=== PATIENT | male | born 1980 | race Caucasian/White ===

== ENCOUNTER 2017-05-28 13:45 | Emergency (ER) | payer OTHER ==
[~2017-05-28] VITALS: Ht 182.9 cm; Wt 104.3 kg
[2017-05-28] MEDS ORDERED: ESOM40CA PO (13:52)
--- NOTE | 2017-05-28 14:04 | NUR ---
DR GRIMALDO AT THE [facility] FOR EVAL AND EXAM.
--- NOTE | 2017-05-28 15:02 | NUR ---
Patient discharged to home in stable conditon. Written and verbal after care instructions given. Patient verbalizes understanding of instructions. No N/V.
[2017-05-28 15:21] VITALS: BP 141/78
== END 2017-05-28 15:22 | disposition home or self-care (01) ==
LOC: ER 13:45
DX: R51 Headache (principal); R11.0 Nausea; K21.9 Gastro-esophageal reflux disease without esophagitis
CPT/HCPCS: 82962; 99282; A4663

== ENCOUNTER 2017-07-03 15:36 | Emergency (ER) | payer OTHER ==
[~2017-07-03] VITALS: Ht 182.9 cm; Wt 104.3 kg
[~2017-07-03 15:36] MED LIST: ESOM40CA PO
[2017-07-03] MEDS ORDERED: AZITHROMYCIN 250 MG TABLET PO ONE (16:00)
--- NOTE | 2017-07-03 16:10 | NUR ---
Patient discharged to home in stable conditon. Written and verbal after care instructions given. Patient verbalizes understanding of instructions.
[2017-07-03] MEDS ORDERED: AZITHROMYCIN 250 MG TABLET ONE (16:24)
== END 2017-07-03 16:10 | disposition home or self-care (01) ==
LOC: ER 15:37
DX: J02.9 Acute pharyngitis, unspecified (principal); K21.9 Gastro-esophageal reflux disease without esophagitis; Z88.0 Allergy status to penicillin
CPT/HCPCS: A4663; Q0144

== ENCOUNTER 2017-11-26 21:29 | Emergency (ER) | payer OTHER ==
[~2017-11-26] VITALS: Ht 185.4 cm; Wt 104.3 kg
[2017-11-26 22:08] LABS: *BILIRUBIN,URIN NEGATIVE (NEGATIVE); *BLOOD, URINE NEGATIVE (NEGATIVE); *CLARITY,URINE CLEAR (CLEAR); *COLOR,URINE YELLOW (YELLOW); *KETONES,URINE NEGATIVE (NEGATIVE); *PROTEIN,URINE NEGATIVE (NEGATIVE); LEUKOCYTE ESTERASE ,URINE NEGATIVE (NEGATIVE); NITRITE, URINE NEGATIVE (NEGATIVE); PH,URINE 7.5 (5.0-8.0); UGLUCOSE NEGATIVE (NEGATIVE)
[2017-11-26 22:13] LABS: MUCUS,URINE FEW /LPF (0-FEW); WBC,URINE 0-3 /HPF (0-3)
--- NOTE | 2017-11-26 22:41 | NUR ---
Patient discharged to home in stable conditon. Written and verbal after care instructions given. Patient verbalizes understanding of instructions. WALKED OUT OF ER WITH NO DISTRESS NOTED
== END 2017-11-26 22:42 | disposition home or self-care (01) ==
LOC: ER 21:34
DX: R30.0 Dysuria (principal); K21.9 Gastro-esophageal reflux disease without esophagitis; Z88.0 Allergy status to penicillin; Z88.6 Allergy status to analgesic agent; Z79.899 Other long term (current) drug therapy
CPT/HCPCS: 81001; 87077; 87086; 87186; 99284; A4663

== ENCOUNTER 2019-05-10 15:05 | Emergency (ER) | payer OTHER ==
[~2019-05-10] VITALS: Ht 182.9 cm; Wt 104.3 kg
--- NOTE | 2019-05-10 16:07 | NUR ---
PATEINT WAS SEEN BY . DC, RX AND FOLLOW UP INSTRUCTIONS GIVEN AND EXPLAINED TO PATIENT WHO STATES HE UNDERSTANDS ALL INSTRUCTIONS.
== END 2019-05-10 16:10 | disposition home or self-care (01) ==
LOC: ER 15:05
DX: H66.91 Otitis media, unspecified, right ear (principal); K21.9 Gastro-esophageal reflux disease without esophagitis; Z88.0 Allergy status to penicillin; Z88.8 Allergy status to other drugs, medicaments and biological substances; Z79.899 Other long term (current) drug therapy
CPT/HCPCS: A4663

== ENCOUNTER 2019-10-08 19:39 | Emergency (ER) | payer OTHER ==
[~2019-10-08] VITALS: Ht 182.9 cm; Wt 104.3 kg
--- NOTE | 2019-10-08 20:06 | NUR ---
Patient presents to ER with c/o of Lt eye x 2 days. Patient alert and oriented x 4, ambulatory with stready gait. Noted mild redness and swelling to Lt upper eyelid. Patient in no acute distress, no discharge to eyes. Patient placed in Bed 2A by triage nurse. Side reails up for safety. Awaiting MD stout.
[2019-10-08] MEDS ORDERED: FLUORESCEIN SODIUM 1 MG STRIP OP ONE (20:15)
[2019-10-08] MEDS ORDERED: FLUORESCEIN SODIUM 1 MG STRIP ONE (20:21)
[2019-10-08] MEDS ORDERED: TETRACAINE HCL 0.5% OPHT DROP 2 ML BOTTLE ONE (20:21)
--- NOTE | 2019-10-08 20:25 | NUR ---
Dr. Ho at bedside.
[2019-10-08] MEDS ORDERED: TETRACAINE HCL 0.5% OPHT DROP 2 ML BOTTLE OP ONE (20:30)
--- NOTE | 2019-10-08 20:41 | NUR ---
Per Dr. Ho patient stable for discharge. DC instructions and prescriptions given and reviewed with patient, verbalized understanding. Left ER in stable condition.
== END 2019-10-08 20:41 | disposition home or self-care (01) ==
LOC: ER 19:39
DX: H00.014 Hordeolum externum left upper eyelid (principal)
CPT/HCPCS: A4663

== ENCOUNTER 2019-10-18 22:29 | Emergency (ER) | payer OTHER ==
[~2019-10-18] VITALS: Ht 182.9 cm; Wt 104.3 kg
--- NOTE | 2019-10-18 22:44 | NUR ---
VISUAL ACUITY EXAM: R- 20/40 L- 20/30 B- 20/30
--- NOTE | 2019-10-18 22:46 | NUR ---
ERMD at bedside for MSE
[2019-10-18] MEDS ORDERED: TETRACAINE HCL 0.5% OPHT DROP 2 ML BOTTLE ONE (22:56)
[2019-10-18] MEDS ORDERED: FLUORESCEIN SODIUM 1 MG STRIP ONE (22:56)
[2019-10-18] MEDS ORDERED: TETRACAINE HCL 0.5% OPHT DROP 2 ML BOTTLE OP ONE (23:00)
[2019-10-18] MEDS ORDERED: FLUORESCEIN SODIUM 1 MG STRIP OP ONE (23:00)
--- NOTE | 2019-10-18 23:05 | NUR ---
Patient discharged to home in stable condition. Written and verbal after care instructions given. Patient verbalizes understanding of instructions. Stressed follow up or return to ER for worsening s/s.
[2019-10-18 23:08] VITALS: BP 121/83
== END 2019-10-18 23:24 | disposition home or self-care (01) ==
LOC: ER 22:31
DX: H10.9 Unspecified conjunctivitis (principal); H00.011 Hordeolum externum right upper eyelid
CPT/HCPCS: A4663

== ENCOUNTER 2020-07-27 14:36 | Emergency (ER) | payer OTHER ==
[~2020-07-27] VITALS: Ht 182.9 cm; Wt 106.6 kg
[2020-07-27] MEDS ORDERED: SULF1TAB48 PO (15:17)
== END 2020-07-27 15:24 | disposition home or self-care (01) ==
LOC: ER 14:37
DX: L73.9 Follicular disorder, unspecified (principal); R03.0 Elevated blood-pressure reading, without diagnosis of hypertension; K21.9 Gastro-esophageal reflux disease without esophagitis; Z88.4 Allergy status to anesthetic agent; Z88.0 Allergy status to penicillin
CPT/HCPCS: A4663